=== PATIENT | male | born 1970 | race Caucasian/White ===

== ENCOUNTER 2017-10-23 07:56 | Emergency (ER) | payer MEDICAID ==
[2017-10-23] MEDS ORDERED: ONDANSETRON 4 MG TAB.RAPDIS PO ONE (08:35)
--- NOTE | 2017-10-23 08:35 | ER Document Report ---
HPI - HPI Patient complains to provider of: wants detox from opiates Onset: Other - yesterday onset of sx Pain Level: 3 Context: 46 yo male smoker heroin addict on 90mg methadone in [facility], and continued to use snorting Heroin as much as he could afford for 6 years. Uses alcohol, crystal meth, cocaine also sporadically. c/o muscle cramps, low back pain, head going to exploid, and dehydration. Vomiting 4-5 x this am, yawing. Moved here thursday living with mom. I need suboxone or strong percocet. No diarrhea. Methadone clinic called the ambulance bc he couldn't see anyone until thursday at the methadone clinic. Heroin snorted on thursday, methadone 90 mg on thursday. Couldn't sleep last night, falling asleep during talking and shakes self awake. Associated Symptoms: None Exacerbated by: Denies Relieved by: Denies Similar symptoms previously: Yes Recently seen / treated by doctor: No - ROS ROS below otherwise negative: Yes Systems Reviewed and Negative: Yes All other systems reviewed and negative - DERM Skin Color: Normal Past Medical History - General Information source: Patient - Social History Smoking Status: Current Every Day Smoker Frequency of alcohol use: few beers last night Drug Abuse: Heroin Lives with: Family - 81 yo mother Family History: Reviewed & Not Pertinent - Medical History Notes: opiate addiction Musculoskeletal Medical History: Reports Other - chronic back pain Vertical Provider Document - CONSTITUTIONAL Agree With Documented VS: Yes Exam Limitations: No Limitations General Appearance: No Apparent Distress - INFECTION CONTROL TRAVEL OUTSIDE OF THE [place] IN LAST 30 DAYS: No - HEENT HEENT: Normocephalic, PERRLA. negative: Conjuctival Injection, Pharyngeal Erythema - NECK Neck: Supple. negative: Lymphadenopathy-Left, Lymphadenopathy-Right - RESPIRATORY Respiratory: Breath Sounds Normal, No Respiratory Distress - CARDIOVASCULAR Cardiovascular: Regular Rate, Regular Rhythm - GI/ABDOMEN Gastrointestinal: Abdomen Soft, Abdomen Non-Tender, No Organomegaly - MUSCULOSKELETAL/EXTREMETIES Musculoskeletal/Extremeties: MAEW, FROM, Non-Tender - NEURO Level of Consciousness: Agitated - yawning Motor/Sensory: No Motor Deficit, No Sensory Deficit - DERM Integumentary: No Rash Course - Re-evaluation Re-evalutation: 10/23/17 11:13 Urine drug screen only is positive for methadone, EKG shows a sinus bradycardia , QT 504, QTc 422, reviewed by Buster 10/23/17 12:10 Patient is resting and states that the Subutex 2 mg that we gave him has relieved the symptoms. He remains in a sinus bradycardia but the blood pressure is stable. He feels a lot better. I explained that we will give him 3 days worth of that dose of Subutex 2 mg to take once a day and see the methadone clinic on Thursday. I also offered that he may come to the emergency room again if the symptoms worsen or any concerns - Laboratory Result Diagrams: 10/23/17 07:25 10/23/17 07:25 Discharge - Discharge Clinical Impression: Opiate withdrawal, Methadone dependence, Heroin abuse Condition: Good Disposition: HOME, SELF-CARE Instructions: [facility], Pain Management Additional Instructions: You have been prescribed 3 days of Subutex 2 mg daily until you see the methadone clinic Return to the emergency room any concerns or worsening of the symptoms [facility] in [place], [place] Address: [address] [place] [address], [place] [address] Opens 7AM Sat Prescriptions: Buprenorphine HCl [Subutex 2 mg Sl Tablet] 2 mg SL DAILY #3 tab.subl
[2017-10-23] MEDS ORDERED: NORMAL SALINE 1000 ML 1,000 ML IV ONE (08:44)
[2017-10-23] MEDS ORDERED: LORAZEPAM INJ 2 MG/1 ML VIAL IV ONE (08:54)
[2017-10-23] MEDS ORDERED: BUPRENORPHINE HCL 2 MG SUBLINGUAL TABLET SL ONE (09:13)
[2017-10-23 09:42] LABS: ABSOLUTE LYMPHOCYTES (AUTO) 0.9 10^3/uL (0.5-4.7); ABSOLUTE MONOCYTES (AUTO) 0.7 10^3/uL (0.1-1.4); ABSOLUTE NEUT (AUTO) 12.7 10^3/uL (1.7-8.2); BASOPHILS % (AUTO) 0.1 % (0-2); HEMOGLOBIN 16.3 g/dL (13.5-17.0); LYMPHOCYTES % (AUTO) 6.4 % (13-45); MEAN CORPUSCULAR HEMOGLOBIN 28.9 pg (27.0-33.4); MEAN CORPUSCULAR HGB CONC 34.6 g/dL (32.0-36.0); MEAN CORPUSCULAR VOLUME 83 fl (80-97); MONOCYTES % (AUTO) 4.9 % (3-13); PLATELET COUNT 252 10^3/uL (150-450); RED BLOOD COUNT 5.63 10^6/uL (4.35-5.55); RED CELL DISTRIBUTION WIDTH 12.6 % (11.5-14.0); SEGMENTED NEUTROPHILS % (AUTO) 88.6 % (42-78); TOTAL CELLS COUNTED % (AUTO) 100 %; WHITE BLOOD COUNT 14.4 10^3/uL (4.0-10.5)
[2017-10-23 10:02] LABS: ALANINE AMINOTRANSFERASE 38 U/L (21-72); ALBUMIN 3.7 g/dL (3.5-5.0); ALKALINE PHOSPHATASE 57 U/L (38-126); ANION GAP 11 (5-19); ASPARTATE AMINO TRANSFERASE 26 U/L (17-59); BILIRUBIN,DIRECT 0.2 mg/dL (0.0-0.4); BILIRUBIN,TOTAL 0.4 mg/dL (0.2-1.3); BLOOD UREA NITROGEN 12 mg/dL (7-20); CALCIUM 9.5 mg/dL (8.4-10.2); CARBON DIOXIDE 32 mmol/L (22-30); CHLORIDE 101 mmol/L (98-107); CREATINE KINASE 174 U/L (55-170); GLUCOSE 112 mg/dL (75-110); POTASSIUM 4.2 mmol/L (3.6-5.0); SODIUM 143.6 mmol/L (137-145); TOTAL PROTEIN 6.2 g/dL (6.3-8.2)
[2017-10-23 10:03] LABS: ACETAMINOPHEN < 10 ug/mL (10-30); ALCOHOL < 10 mg/dL (NONE DETECTED); SALICYLATE < 1.0 mg/dL (2.0-20.0)
[2017-10-23 10:27] LABS: APPEARANCE,URINE CLEAR; BILIRUBIN,URINE NEGATIVE (NEGATIVE); COLOR,URINE YELLOW; GLUCOSE, URINE NEGATIVE (NEGATIVE); KETONES,URINE NEGATIVE (NEGATIVE); LEUKOCYTE ESTERASE,URINE NEGATIVE (NEGATIVE); NITRITE,URINE NEGATIVE (NEGATIVE); PROTEIN,URINE NEGATIVE (NEGATIVE); URINE SPECIFIC GRAVITY 1.012; UROBILINOGEN,URINE NEGATIVE mg/dL (<2.0)
[2017-10-23 10:38] LABS: URINE AMPHETAMINES SCREEN NEGATIVE; URINE BARBITURATES SCREEN NEGATIVE; URINE BENZODIAZEPINES SCREEN NEGATIVE; URINE COCAINE SCREEN NEGATIVE; URINE MARIJUANA (THC) SCREEN NEGATIVE; URINE METHADONE SCREEN UNCONFIRMED POSITIVE; URINE PHENCYCLIDINE SCREEN NEGATIVE
[2017-10-23 12:42] VITALS: BP 142/90
--- NOTE | 2017-10-23 19:44 | EKG REPORT ---
SEVERITY:- OTHERWISE NORMAL ECG - SINUS BRADYCARDIA : Confirmed by: Kari Salgado MD 23-Oct-2017 19:43:38
== END 2017-10-23 12:43 | disposition home or self-care (01) ==
LOC: ER 07:56
DX: F11.23 Opioid dependence with withdrawal (principal); T40.2X5A Adverse effect of other opioids, initial encounter; Y92.9 Unspecified place or not applicable; R00.1 Bradycardia, unspecified; F14.90 Cocaine use, unspecified, uncomplicated; F15.90 Other stimulant use, unspecified, uncomplicated; R25.2 Cramp and spasm; M54.5 Low back pain; G89.29 Other chronic pain; R51 Headache; E86.0 Dehydration; R11.10 Vomiting, unspecified; Z72.89 Other problems related to lifestyle; Z79.899 Other long term (current) drug therapy; F17.200 Nicotine dependence, unspecified, uncomplicated
CPT/HCPCS: 93005; 99285; 96361; 96374; 36415; 80307 ×4; 82550; 85025; 80053; 81001; 93010; S0119; J2060; J7030; J0571